=== PATIENT | male | born 1995 | race African-American/Black ===

== ENCOUNTER 2016-12-29 10:15 | Emergency (ER) | payer OTHER | END 2016-12-29 12:37 | disposition home or self-care (01) | LOC: ER 10:15 | DX: S01.21XA Laceration without foreign body of nose, initial encounter (principal); W22.01XA Walked into wall, initial encounter; Y92.009 Unspecified place in unspecified non-institutional (private) residence as the place of occurrence of the external cause; Z72.89 Other problems related to lifestyle; F17.210 Nicotine dependence, cigarettes, uncomplicated ==